=== PATIENT | female | born 1975 | race Caucasian/White ===

== ENCOUNTER 2024-04-22 14:34 | Emergency (ER) | payer BC, SELFPAY ==
[2024-04-22 14:40] VITALS: BP 143/98; PULSE 97; RESP 20; TEMP 36.7; O2SAT 98; BMI 32.5
--- NOTE | 2024-04-22 14:46 | XR_ITS ---
Examination: Shoulder,left, 3 views Technique: Shoulder AP internal rotation, AP external rotation, Y view shoulder, 3 views Exam date and time :2024 at 1442 hrs. Indications: Injury to the shoulder today, shoulder pain Findings: 2 mm AC joint offset, age indeterminate No shoulder fracture or dislocation Mild osteoarthritis glenohumeral joint No calcific tendinitis Impression: 2 mm AC joint offset, age indeterminate Mild osteoarthritis glenohumeral joint
--- NOTE | 2024-04-22 14:46 | XR_ITS ---
Examination: Humerus 2 views left Technique: Humerus, AP lateral 2 views Date and time of exam: April 22, 2024 1452 hrs. Indications: Injury to left arm today, left arm pain. Findings: Humeral head neck and shaft appear intact No true AP film of the humerus Impression: Limited study with no acute fracture
--- NOTE | 2024-04-22 14:46 | XR_ITS ---
Examination: Forearm, left, 2 views. Technique: Forearm, AP, lateral 2 views Date and time of exam: April 22, 2024 1452 hrs. Indications: Injury to the forearm today, forearm pain. Findings: Acute fracture distal humerus involving the lateral humeral condylar region There is no true AP view of the forearm Impression: Acute fracture distal humerus, recommend standard 3 view elbow series follow-up
--- NOTE | 2024-04-22 14:46 | XR_ITS ---
Examination: Left elbow 2 views Technique: Limited study, essentially 2 lateral views of the elbow Exam date and time: April 22, 2024 1452 hrs. Indications: Injury to the elbow today, elbow pain. Findings: Nondiagnostic study On the lateral view visualization 15 mm fracture fragment which appears to be off the lateral humeral condyle Impression: Nondiagnostic study Recommend follow-up 3 view standard elbow series to assess fracture distal humerus
--- NOTE | 2024-04-22 14:49 | PD.EDRME ---
Rapid Medical Screening Exam RME Arrival date/time: 04/22/24 14:34 This is a 49-year-old female that is brought in by family member with complaints of fall. Patient states she was getting out of a chair and accidentally fell backwards and landed on her left arm. Patient denies past medical history. Most of patient's pain is around left elbow. Patient denies any other trauma. I have greeted and performed a focused initial assessment of this patient. Initial appropriate labs ordered at this time. A comprehensive ED assessment and evaluation of the patient and analysis of all test and completion of medical decision making process will be conducted by additional ED provider. Chief Complaint: Extremity Injury, Upper Time Seen by Provider: 04/22/24 14:41 Vital signs: Vital Signs Temperature 98.0 F 04/22/24 14:40 Pulse Rate 97 04/22/24 14:40 Respiratory Rate 20 04/22/24 14:40 Blood Pressure 143/98 H 04/22/24 14:40 Pulse Oximetry (%) 98 04/22/24 14:40 Oxygen Delivery Method Room Air 04/22/24 14:40
[2024-04-22] MEDS: HYDROcodone/APAP 5/325 TABLET 1 TAB PO ×2 (15:11→16:07)
[2024-04-22] MEDS: ONDANSETRON ODT 4 MG TABRAP PO (15:11)
--- NOTE | 2024-04-22 15:59 | XR_ITS ---
Examination: Left elbow 3 views Technique: Elbow AP, oblique, lateral 3 views Exam date and time: April 22, 2024 1615 hrs. Indications: To the elbow today, elbow pain. Findings: Acute supracondylar fracture distal humerus through the lateral humeral condylar region There is offset of the humeral condylar fracture fragment on the oblique view, mild Jennifer and radial head and neck intact Impression: Acute supracondylar fracture distal humerus through the lateral humeral condyle.
--- NOTE | 2024-04-22 16:51 | PD.EDUPEX ---
Upper Extremity Injury RME/HPI General Chief Complaint: Extremity Injury, Upper Stated Complaint: FELL LEFT ELBOW PAIN Time Seen by Provider: 04/22/24 14:41 Arrival date/time: 04/22/24 14:34 This is a 49-year-old female that is brought in by family member with complaints of fall. Patient states she was getting out of a chair and accidentally fell backwards and landed on her left arm. Patient denies past medical history. Most of patient's pain is around left elbow. Patient denies any other trauma. RME / HPI RME / HPI narrative: 04/22/24 14:34 This is a 49-year-old female that is brought in by family member with complaints of fall. Patient states she was getting out of a chair and accidentally fell backwards and landed on her left arm. Patient denies past medical history. Most of patient's pain is around left elbow. Patient denies any other trauma. I have greeted and performed a focused initial assessment of this patient. Initial appropriate labs ordered at this time. A comprehensive ED assessment and evaluation of the patient and analysis of all test and completion of medical decision making process will be conducted by additional ED provider. Related Data Previous Rx's ?Medication ?Instructions ?Recorded hydrocodone 5 mg-acetaminophen 325 1 tab PO Q6H PRN pain #20 tabs 04/22/24 mg tablet Allergies Allergy/AdvReac Type Severity Reaction Status Date / Time No Known Allergies Allergy Unverified 04/22/24 14:49 Review of Systems Review of Systems Systems Reviewed: All systems reviewed, normal except as documented Past Medical History Past Medical History Comments PMH COMMENT: denies ED Exam General General appearance: Present alert and in no apparent distress Head Head exam: Present atraumatic Eye Eye exam: Present normal appearance, PERRL and EOMI ENT ENT exam: Present normal exam, normal oropharynx and mucous membranes moist Neck Neck exam: Present normal inspection, full ROM and trachea midline Chest Chest inspection: Present normal inspection and symmetric chest wall rise Respiratory Respiratory exam: Present normal lung sounds bilaterally Cardiovascular Cardiovascular exam: Present regular rate, normal rhythm and normal heart sounds Abdominal Exam Abdominal exam: Present soft Extremities Exam Extremities exam: Present other (Pain to palpation to the left elbow, pain with range of motion.) Back Exam Back exam: Present normal inspection and full ROM Neurological Exam Neurological exam: Present alert, oriented X3 and CN II-XII intact Psychiatric Psychiatric exam: Present normal affect and normal mood Skin Skin exam: Present warm, dry, intact and normal color Course Quality Measures none Orders Category Date Time Status XR elbow comp LT min 3V Stat Exams 04/22/24 14:46 Completed XR elbow comp LT min 3V Stat Exams 04/22/24 15:59 Completed XR forearm LT 2V Stat Exams 04/22/24 14:46 Completed XR humerus LT MIN 2V Stat Exams 04/22/24 14:46 Completed XR shoulder LT min 2V Stat Exams 04/22/24 14:46 Completed HYDROcodone*/APAP 5/325 [Burdine 5/325] Med 04/22/24 14:47 Discontinued 1 tab PO X1 ONE HYDROcodone*/APAP 5/325 [Burdine 5/325] Med 04/22/24 16:01 Discontinued 1 tab PO X1 ONE Ondansetron Odt [Zofran Odt] Med 04/22/24 14:47 Discontinued 4 mg PO X1 ONE Vital Signs Vital signs: Vital Signs Temperature 98.0 F 04/22/24 14:40 Pulse Rate 97 04/22/24 14:40 Respiratory Rate 20 04/22/24 14:40 Blood Pressure 143/98 H 04/22/24 14:40 Pulse Oximetry (%) 98 04/22/24 14:40 Oxygen Delivery Method Room Air 04/22/24 14:40 Extremity Injury MDM Narrative MDM Narrative:: elbow x ray: Findings: Acute supracondylar fracture distal humerus through the lateral humeral condylar region There is offset of the humeral condylar fracture fragment on the oblique view, mild Jennifer and radial head and neck intact Impression: Acute supracondylar fracture distal humerus through the lateral humeral condyle. humerus x rays: IMPRESSION: Acute comminuted supracondylar humeral fracture through the lateral humeral condyle The 19 mm fracture condylar fragment is rotated and displaced anterior to the radial head shoulder x ray: Impression: 2 mm AC joint offset, age indeterminate Mild osteoarthritis glenohumeral joint forearm x ray: Findings: Acute fracture distal humerus involving the lateral humeral condylar region There is no true AP view of the forearm Impression: Acute fracture distal humerus, recommend standard 3 view elbow series follow-up I called orthopedic surgeon on-call Dr. Fung. He stated he would see patient in the office. Patient given Burdine for pain. Patient placed in a splint in position of comfort per Dr Bush order. Patient data External records reviewed:: [facility] previous records Clinical information provided by:: patient Social determinants that could affect healthcare access:: none Patient has the following chronic illnesses:: none How is presenting disease/condition affected by chronic disease/condition?: no chronic disease Evaluation data The following diagnostics were reviewed and interpreted by me:: radiology exam(s) Lab and/or radiology exams considered but not ordered:: none Interpretation Summary: see note Medications / Prescriptions Medications or Prescriptions considered but not ordered:: none Medication administrations:: Medication Administration History Discontinued Medications Hydrocodone Bitart/Acetaminophen (Hydrocodone/Apap 5/325 Tablet) 1 tab PO X1 ONE Stop: 04/22/24 14:48 Last Admin: 04/22/24 15:11 Dose: 1 tab Documented By: SHAR Hydrocodone Bitart/Acetaminophen (Hydrocodone/Apap 5/325 Tablet) 1 tab PO X1 ONE Stop: 04/22/24 16:02 Last Admin: 04/22/24 16:07 Dose: 1 tab Documented By: SHAR Ondansetron HCl (Ondansetron Odt 4 Mg Tabrap) 4 mg PO X1 ONE; Protocol Stop: 04/22/24 14:48 Last Admin: 04/22/24 15:11 Dose: 4 mg Documented By: SHAR see [facility] Consultations Consultation(s) initiated? (list below): No Diagnosis Upper Extremity Injury Differential Diagnosis: fracture of wrist, dislocation of shoulder and fracture of humerus Most likely diagnosis given after review of the tests above:: Acute fracture distal humerus Admission Indicated Admission indicated?: not indicated Admission Request Was there a request for admission?: No Disposition Plan Disposition Plan: Discharge Discharge Attestation Discharge Attestation: The patient and all family members were given an opportunity to ask questions and understood the discharge instructions. Discharge instructions specifically effects, indications for sooner follow up or return to the emergency department, and the expected course of current diagnosis. Patient condition: Stable Discharge Plan Plan Patient Disposition: HOME (Self Care) Patient condition on transfer: Stable Prescriptions/Referrals Prescriptions/Med Rec: New hydrocodone-acetaminophen 5-325 mg tablet 1 tab PO Q6H MDD 4 PRN (Reason: pain) Qty: 20 0RF Referrals: Vish Bush MD [Physician] - 04/23/24 3:00 pm Problem List Clinical Impression: Fracture, humerus Patient/Caregiver Discharge Instructions Discharge Activity: activity as tolerated Education Materials: ED Fracture, Upper Extremity Additional Instructions: Follow up with primary provider in 1-2 days. Come back to ED if symptoms change or worsen. Print Language: Wolof Stand Alone Forms: Tonia Award Info., Patient Portal Info Letter PA/COLD MOLDING PRESS OPERATOR Supervising Physician PA/COLD MOLDING PRESS OPERATOR Supervising Physician: nathan
== END 2024-04-22 17:10 | disposition home or self-care (01) ==
PROVIDERS: Emergency Provider Emergency Medicine; PCP Family Medicine
DX: S42.452A Displaced fracture of lateral condyle of left humerus, initial encounter for closed fracture (principal); W07.XXXA Fall from chair, initial encounter
CPT/HCPCS: 29105; 73030; 73060; 73080; 73090; 99283; A4565; Q0162; A9270

== ENCOUNTER → 2024-04-26 | Outpatient (CLI) | payer BC, SELFPAY ==
[2024-04-26 10:32] LABS: HCG Qualitative,Urine Negative
--- NOTE | 2024-04-26 10:34 | XR_ITS ---
Examination: CT left humerus, without contrast. 2-D sagittal reconstructions. 2-D coronal reconstructions. 3-D reconstructions. Date and time of exam:April 25, 2024 1101 hours INDICATIONS: Diagnosis flow supracondylar fracture left humerus elbow pain 4 days CTDI: vol (mGy):22.9 DLP: (mGycm):1044 Technique: Multiple 1.25 mm axial sections of the left humerus without intravenous contrast have been obtained. 2-D sagittal and coronal reconstructions have been obtained. 3-D reconstructions have been obtained. Low dose protocols were performed. One or more of the following dose reduction techniques were used; automated exposure control, adjustment of the mA and/or KV according to patient size, use of iterative reconstruction technique. Findings: Humeral head is intact, no shoulder dislocation Acute comminuted fracture supracondylar humerus through the lateral humeral condyle The fractured condylar fragment, coronal image 35 measures 19 mm and is rotated and displaced anterior to the radial head The radial head and neck and shaft The olecranon including ulnar notch are intact IMPRESSION: Acute comminuted supracondylar humeral fracture through the lateral humeral condyle The 19 mm fracture condylar fragment is rotated and displaced anterior to the radial head
== END | disposition home or self-care (01) ==
LOC: SCAT 09:44
PROVIDERS: PCP Family Medicine; Referring Provider Orthopaedic Surgery; Visit Provider Orthopaedic Surgery
DX: S42.412A Displaced simple supracondylar fracture without intercondylar fracture of left humerus, initial encounter for closed fracture (principal); S52.122A Displaced fracture of head of left radius, initial encounter for closed fracture; X58.XXXA Exposure to other specified factors, initial encounter
CPT/HCPCS: 73200; 81025